=== PATIENT | male | born 1935 | race Hispanic/Latino ===

== ENCOUNTER → 2017-05-17 | Outpatient (CLI) | payer OTHER ==
[~2017-05-17] VITALS: Ht 180.3 cm; Wt 91.6 kg
[~2017-05-17] MED LIST: ASPI-555 PO; ATOR40TA69 PO; FLUO15CR2 TP; GLIP10TA9 PO; LOSA50TA37 PO; METF500T6 PO; METO25 PO; OMEP20TA25 PO; REGADENOSON 0.4 MG/5 ML PF SYG IVP SCH; SAXA5TAB PO; TAMS0.4C32 PO; TRAM50TA2 PO; TRAM50TA4 PO
== END | disposition home or self-care (01) ==
LOC: SHCH 09:51
PROVIDERS: ATTEND Internal Medicine Cardiovascular Disease
DX: I20.9 Angina pectoris, unspecified (principal)
CPT/HCPCS: 78452; 93017; 96374; A9500 ×2; J2785